=== PATIENT | female | born 1995 | race Caucasian/White ===

== ENCOUNTER 2022-08-30 09:36 | Outpatient (RCR) | payer MEDICAID, SELFPAY ==
--- NOTE | 2022-08-30 11:05 | BH.SGPN.GN ---
Behaviors/Verbalizations/Mental Status: []Pt alert and oriented, casually dressed and groomed. Eye contact poor. Motor activity appropriate. Speech within normal limits. Affect constricted, mood anxious. Thoughts linear, logical, no signs of hallucinations or delusions. Client Response/Progress/Benefit: []Pt appeared highly anxious as pt had poor eye contact and declined to share. Pt did engage with peers during the activity.? Pt observed peers in activity. Pt given handout on fair fighting rules but pt declined to identify a coping skill to try. ?Appeared to benefit from gaining strategies to help pt better manage conflict. First day of IOP tx. Will continue IOP tx to prevent decompensation, gain healthy coping skills, and improve daily functioning. Narrative Note: []
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
--- NOTE | 2022-08-30 12:50 | BH.DR.ITP ---
Initial Treatment Plan Patient Information Visit Information: ADMISSION DATE: EXPECTED LOS: 4-6 weeks Problems/Symptoms Problem #1:: Mood instability Symptom:: Sadness, irritability, hopelessness, worthlessness, isolation, decreased sleep, low energy, guilt, thoughts of self-harm Problem #2:: Anxiety Symptom:: Worry, rumination, panic attacks, worries about , flashbacks, reexperiencing, avoidance, exaggerated startle response
--- NOTE | 2022-08-30 14:38 | BH.COMM_ITS ---
Communication Note - Communication with Client Communication Note: Met with pt to complete initial paperwork. No significant changes since pre-admission screening. Completed [place] Suicide Screening. Moderate risk. No active SI. Consulted with Dr. Cabrera with plan to admit to [facility] level of care with dx of Bipolar, NOS (F31.9).
--- NOTE | 2022-08-31 09:10 | BH.SGPN.GN ---
Behaviors/Verbalizations/Mental Status: [] Eye contact is poor. Motor activity is appropriate. Appearance is casual. Speech is Appropriate. Mood is depressed. Affect is flat. Thoughts are linear and logical. No evidence of psychosis. Reviewed daily check in sheet and no reports of suicidal ideations or intent. Client Response/Progress/Benefit: [] Pt did not participate in group discussion. Attentive at times however mainly looking down at the ground. No attempt to engage. Daily symptom tracker notes 3/5 for anxiety and depression and 1/5 for self-harm urges. When asked if she would like to share or answer a fun ice-breaker questions she declined. No benefited noted from group today. This is her second day in IOP however no engagement in any group sessions yet. Will continue in IOP to prevent decompensation, provide support, and increase healthy coping skills. Narrative Note: []
--- NOTE | 2022-08-31 10:10 | BH.SGPN.GN ---
Behaviors/Verbalizations/Mental Status: []Eye contact is fair. Motor activity is appropriate. Appearance is casual. Speech is Appropriate. Mood is depressed and anxious. Affect is constricted. Thoughts are linear and logical. No evidence of psychosis. Client Response/Progress/Benefit: []Pt second day in IOP tx, continues to report severe anxiety impeding ability to participate in discussions. Attentive during psychoeducation AEB note-taking and nodding throughout. Attentive during interactive discussion amongst peers on the definition and examples of crisis, sharing that ?you have to be ready to make changes in order to take steps towards crisis prevention?. Listened as peers identified unhealthy responses to crisis which included; substance use, avoidance, isolation, sleeping, risky behaviors, denial, etc. Benefited from increased awareness of crisis and personal warning signs. Will continue in IOP to prevent decompensation, stabilize mood, and increase healthy coping. Narrative Note: []
--- NOTE | 2022-08-31 11:10 | BH.SGPN.GN ---
Behaviors/Verbalizations/Mental Status: []Client alert and oriented, casually dressed and groomed. Eye contact poor. Motor activity appropriate. Speech within normal limits. Affect flat. Mood anxious. Thoughts linear, logical, no signs of hallucinations or delusions. Client Response/Progress/Benefit: []Client passive participant in group AEB providing limit contributions, however did appear to listen attentively to others. Client identified her warning signs on worksheet for crisis and gained further awareness of earliest warning signs. Client created a crisis action plan to help client better manage warning signs for crisis. Client identified she can make jokes to make others laugh to overcome warning sign of not wanting to speak. Client appeared to benefit from creating a crisis action plan and increasing self-awareness. Client expresses severe anxiety in group environment. Client to continue IOP tx to improve daily functioning, increase healthy coping, and prevent decompensation.
--- NOTE | 2022-08-31 11:16 | BH.COMM_ITS ---
Communication Note - Communication with Client Communication Note: Therapist intended to meet with pt for an individual s ession, but pt was too anxious. Pt avoiding eye contact, fidgeting with her shoelaces, and repeating I don't know when asked questions. Pt shared she is unsure if she will stay in IOP due to her anxiety in the group setting. Pt reports wanting to give it another day or two before she makes a decision. Pt encouraged to stay, but if pt decides to voluntarily discharge, pt will be offered counseling resources.
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
--- NOTE | 2022-08-31 12:48 | BH.MTP ---
Master Treatment Plan - Patient Information Program Physician:: Dr. Chappell Primary Therapist:: Nelly SEGURA - Psychiatric Diagnoses Psychiatric Diagnoses:: Bipolar, NOS (F31.9); Panic disorder; PTSD; OCD; Rule out borderline personality disorder Diagnosis Code(s):: F 31.9 - Estimated LOS Estimated LOS (in weeks):: 6 Problem/Goal #1 - Problem/Goal #1 Stated Goal:: Pt will increase mood stability by reducing hopelessness, worthlessness, irritability, and isolation. Description of Barriers: Pt has severe anxiety which leads to avoidance, so there is a concern that pt will struggle with the group environment. Pt has limited supports and pt struggles to maintain employment. Pt has a history of self-injurious behaviors. Functional Impact: Pt is a 27 year-old female with a history of MDD, CARLOS, OCD, and PTSD. Pt was self-referred due to decompensation over the past several months. At admission, pt endorsed increased sleep, erratic appetite, low energy, low motivation, hopelessness, worthlessness, isolative behaviors, increased irritability, and anhedonia. Pt reports that she just wants to lay in bed all day. Pt shared she has passive SI, but is terrified of dying so pt would not act on these thoughts. Pt also endorsed severe anxiety with daily panic attacks and ruminations. Pt stated it is hard for her to maintain employment due to her anxiety and panic attacks. Pt's symptoms are currently impacting her daily and occupational functioning. Goal Relevant Strengths/Supports: Pt is motivated for tx per her report, has support from her roommate, and has outpatient psychiatry. - Objectives Objective #1 Stated Objective: Pt will learn and utilize 2-3 healthy coping strategies to better manage depressive symptoms and reduce thoughts of as shown by a decrease of DMS-5 symptoms for depression. Interventions: Through group and individual sessions, therapist will help pt identify triggers and warning signs of depression and guilt including emotional, physical, and behavioral changes. Therapist will teach pt various coping skills to manage symptoms and give pt tangible resources to use to regulate emotions. Therapist will use cognitive restructuring techniques and help pt gain awareness of negative thoughts that reinforce guilt and depression. Therapist will provide psychoeducation on maintenance cycles and help pt learn ways to break unhealthy maintenance cycles. Therapist will help pt incorporate behavioral activation and assist pt in setting SMART goals. Discharge Criteria: Pt will have met this goal when can report learning and using at least 2 coping skills to manage depressive symptoms and reduce isolation. Additionally, pt will have met this goal when pt's DSM-5 scores for depression decrease. Target Date: 10/11/22 Review Date: 09/20/22 Status: open Objective #2 Stated Objective: Pt will reduce anhedonia and improve mood through setting and accomplishing 2-3 behavioral activation goals a week. Interventions: Through group and individual sessions, pt will learn how to set small SMART goals to promote mood stability. Therapist will provide education on maintenance cycles for depression and help pt learn how to break unhealthy maintenance cycles Discharge Criteria: Pt will have accomplished this goal when can report accomplishing at least two behavioral activation goal a week. Target Date: 10/11/22 Review Date: 09/20/22 Status: open Problem/Goal #2 - Problem/Goal #2 Stated Goal:: Will reduce avoidance and anxiety through increasing emotional regulation and distress tolerance skills Description of Barriers: Pt has severe anxiety which leads to avoidance, so there is a concern that pt will struggle with the group environment. Pt has limited supports and pt struggles to maintain employment. Pt has a history of self-injurious behaviors. Functional Impact: Pt is a 27 year-old female with a history of MDD, CARLOS, OCD, and PTSD. Pt was self-referred due to decompensation over the past several months. At admission, pt endorsed increased sleep, erratic appetite, low energy, low motivation, hopelessness, worthlessness, isolative behaviors, increased irritability, and anhedonia. Pt reports that she just wants to lay in bed all day. Pt shared she has passive SI, but is terrified of dying so pt would not act on these thoughts. Pt also endorsed severe anxiety with daily panic attacks and ruminations. Pt stated it is hard for her to maintain employment due to her anxiety and panic attacks. Pt's symptoms are currently impacting her daily and occupational functioning. Goal Relevant Strengths/Supports: Pt is motivated for tx per her report, has support from her roommate, and has outpatient psychiatry. - Objectives Objective #1 Stated Objective: Pt will increase ability to manage stressors and anxiety by gaining 2-3 distress tolerance skills. Interventions: Through group and individual therapy, pt will learn various coping skills to help manage stress and anxiety. Therapist will utilize DBT distress tolerance skills to increase awareness and give pt tools to more effectively manage anxiety. Therapist will provide psychoeducation on emotional regulation and help pt identify unhealthy coping skills she wants to change. Discharge Criteria: Pt will have accomplished this goal when can report improved ability to manage stressors and identify at least 2 distress tolerance skills Target Date: 10/11/22 Review Date: 09/20/22 Status: open Objective #2 Stated Objective: Pt will identify 2-3 anxiety triggers and 2 coping skills to use when feeling anxious to manage anxiety as shown by reducing DSM-5 scores for anxiety Interventions: Therapist will provide education on anxiety, avoidance behaviors, and maintenance cycles. Therapist will help pt explore personal symptoms and warning signs of anxiety. Therapist will teach pt coping skills to improve emotional regulation, mindfulness, and distress tolerance to help pt cope with anxiety in the moment. Discharge Criteria: Pt will have accomplished this goal when he can identify at least 2 triggers and report using 2 coping skills to manage anxiety. Additionally, pt will have accomplished this goal AEB reduction of DSM-5 scores for anxiety. Target Date: 10/11/22 Review Date: 09/20/22 Status: open
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
--- NOTE | 2022-09-06 10:12 | BH.SGPN.GN ---
Behaviors/Verbalizations/Mental Status: []Eye contact is fair to good. Motor activity is appropriate. Appearance is casual. Speech is Appropriate, soft and difficult to hear at times. Mood is anxious. Affect is constricted. Thoughts are linear and logical. No evidence of psychosis. Client Response/Progress/Benefit: []Pt did well to be an engaged participant in group discussions which is progress compared with previous groups. Attentive during psychoeducation on SMART goals (Specific, Measurable, Achievable, Realistic, and Time-bound) and engaged in group experiential activity. Participated in an interactive discussion with peers in which they worked together to define what a goal is and the benefits of having goals. Group identified benefits as; provides motivation, increased confidence, needed for growth, gives a sense of accomplishment, and help promote healthy change behaviors. Participated in interactive discussion in which group identified barriers to setting goals and following through with goals. Barriers identified included; lack of motivation, procrastination, criticism from self/others, unrealistic expectations, outside stressors, and not knowing where to start. Noted connecting with barrier of procrastination and not prioritizing own needs. Benefited from increased awareness of benefits and strategies for goal-setting. Will continue in IOP to prevent decompensation, improve mood stability, and improve ability to use healthy distress tolerance skills. Narrative Note: []
--- NOTE | 2022-09-06 11:12 | BH.SGPN.GN ---
Behaviors/Verbalizations/Mental Status: []Eye contact is fair to good. Alert and oriented. Motor activity is appropriate. Appearance is casual. grooming is appropriate. Speech is Appropriate. Mood is anxious and dysthymic. Affect is congruent. Thoughts are linear and logical. No evidence of psychosis or hallucinations. Client Response/Progress/Benefit: []Client was engaged during discussion and willing to complete the worksheet challenging them to develop a personal SMART goal. Client chose the goal of not engaging in unhealthy coping/self-harming when tempted to each day for a week. Client stated this will benefit them by improving approach to healthy coping, prevent decompensation, and improve sense of hope. Client identified barriers which included: negative and intrusive thinking, not wanting to lose sense of control, and fear. Client receptive to identifying solutions for these barriers and willing to begin working on this goal. Benefited from this group by developing a short-term SMART goal related to mental health. Will continue IOP tx to improve mental health sx management, increased healthy coping, and prevent decompensation. Narrative Note: []
--- NOTE | 2022-09-07 09:05 | BH.SGPN.GN ---
Behaviors/Verbalizations/Mental Status: [] Eye contact is good. Motor activity is appropriate. Appearance is casual. Speech is Appropriate. Mood is anxious. Affect is congruent. Thoughts are linear and logical. No evidence of psychosis. Reviewed daily check in sheet and no reports of suicidal ideations. Client Response/Progress/Benefit: [] Pt participated at times. Attentive. Mental health win was ?I participated in group yesterday?. Daily symptom tracker notes 4/5 for anxiety and 3/5 for depression and irritability. Shared that she developed a goal yesterday during group and has been ?sticking with it?. She has also been ?Staying away from unhealthy coping skills?. Emotion for today is ?feeling good?. Benefited from group support, encouragement, and feedback. Will continue in IOP to maintain safety, prevent decompensation, and decrease anxiety/panic. Narrative Note: []
--- NOTE | 2022-09-07 13:00 | BH.MDN ---
Multi-Disciplinary Note - Note 45-min Individual Time Started:: 10:30 Date: 09/07/22 Purpose of session/treatment goals addressed:: Pt left group early reporting a panic attack. Met with this therapist to process and manage anxiety. Eye Contact:: Fair Motor Activity:: Restless Appearance:: Casual Speech:: Rapid Mood:: Anxious Affect:: Congruent Thoughts:: Linear, Logical, No evidence of hallucinations/delusions noted Staff Interventions:: mindfulness skills, taught coping skills Client Response:: Pt reports panic attack due to being overstimulated in group (too many noises and stimuli). She is breathing heavy and reports SOB and increased heart rate. We began to utilize basic skills to help decreased anxiety and overwhelming thoughts. She reports that breathing exercises make things worse so we focused on mindfulness and grounding. Together we worked through 5 senses and she was able to calm. Reports being hypervigilant for no reason. When this occurs she begins to focus on physical sensations which leads to intrusive thoughts about her health and convinces herself she is having a medical emergency. Engaged in disucssion on health anxiety and intrusive thoughts. Open to discussion on worried mind, false comfort, and gibson mind and how these skills can help minimize impact of intrusive health thoughts. Reports that anxiety is worse due in large part to psychosocial stressors specifically work. She processed some of her frustrations with her employer. Risks/Concerns:: no risks or concerns noted. Progress Toward Goals/Plan:: Pt was able to calm and manage anxiety attacks within 5-10 minutes and responded well to mindfulness skills. Towards the end of the session she was smiling and reported feeling much better. She criticizes herself for her anxiety and catastrophizing thoughts I know what I'm doing She felt calm enough to return to group however reported that when she was in panic she texted her friend to pick her up and her friend was currently in the parking lot. We agreed that she could leave early today. Will continue in IOP to prevent decompensation, stabilize anxiety, and increase healthy coping skills. Time Stopped:: 11:15
== END 2022-09-08 23:59 ==
LOC: BHIOP 09:36
PROVIDERS: Referring Provider Psychiatry & Neurology Psychiatry; Visit Provider Psychiatry & Neurology Psychiatry
DX: F31.9 Bipolar disorder, unspecified (principal); F43.10 Post-traumatic stress disorder, unspecified; F41.0 Panic disorder [episodic paroxysmal anxiety]; F42.9 Obsessive-compulsive disorder, unspecified
CPT/HCPCS: 90792; H2012; H2020; S9480; 90832

== ENCOUNTER 2022-09-09 08:22 | Outpatient (RCR) | payer MEDICAID, SELFPAY ==
--- NOTE | 2022-09-09 09:20 | BH.COMM ---
Communication Note - Communication with Client Communication Note: Pt canceled their scheduled group and individual sessions today due to illness. Pt did not get to meet with this therapist this week, but met with another therapist on Tuesday. PT plans to come Tuesday09/13/22.
--- NOTE | 2022-09-14 09:10 | BH.SGPN.GN ---
Behaviors/Verbalizations/Mental Status: [] Eye contact is good. Motor activity is appropriate. Appearance is casual. Speech is Appropriate. Mood is anxious. Affect is congruent. Thoughts are linear and logical. No evidence of psychosis. Reviewed daily check in sheet and denies any SI. Client Response/Progress/Benefit: [] Pt participated when prompted. Attentive. Emotion for today was ?Stressed and anxious?. Shared with the group that she utilized assertive communication over the weekend ?which I learned from group?. She verbalized to her retail account manager the impact that the retail account manager?s words had on her. Professor Of Philosophy responded well and apologized. Able to see the benefits to being assertive rather than avoidant as the event would have led to anger and resentment towards her retail account manager. She also shared with the group her struggles with health anxiety and discussed some examples from this weekend. Benefited from group support, encouragement, and feedback. Will continue in IOP to prevent decompensation, increase healthy coping, and to decrease intrusive thoughts. Narrative Note: []
--- NOTE | 2022-09-14 10:05 | BH.SGPN.GN ---
Behaviors/Verbalizations/Mental Status: []Pt alert and oriented, casually dressed and groomed. Eye contact good. Motor activity appropriate. Speech within normal limits. Affect congruent, mood depressed, anxious. Thoughts linear, logical, no signs of hallucinations or delusions. Client Response/Progress/Benefit: []Pt responded well to session AEB contributing some to discussion, taking notes, and listening attentively to others. Group discussed the benefits of managed anger and anger as a secondary emotion. Pt shared perspective on negatives from acting out in anger as increased anxiety and negative self-talk.? Pt completed worksheet on anger triggers and personal warning signs of anger. Pt identified their biggest triggers as ?fear or feeling unsafe?, when something isn?t fair, and invalidation. Appeared to benefit from increased knowledge of the anger cycle as well as personal triggers. Will continue IOP tx to promote mood stability, further improve anxiety management, and reinforce use of healthy coping skills. Narrative Note: []
--- NOTE | 2022-09-14 11:10 | BH.SGPN.GN ---
Behaviors/Verbalizations/Mental Status: []Client alert and oriented, casually dressed and groomed. Eye contact fair. Motor activity appropriate. Speech within normal limits. Affect constricted, mood anxious. Thoughts linear, logical, no signs of hallucinations or delusions. Client Response/Progress/Benefit: []Pt was engaged throughout AEB contributing to group discussion and self-reflection. Group finished processing cues to anger worksheet. Pt contributed as group brainstormed healthy coping skills for better managing anger which included: music, walking/exercise, changing the environment, communicating with supports, and journaling. Pt reported she would be willing to start using thought log tool to increase awareness of her triggers, responses, and frequency of experiencing anger. Pt appeared to benefit from identifying different techniques to manage anger as well as gaining awareness of potential consequences of unmanaged anger. Will continue IOP tx to improve daily functioning, increase healthy coping and prevent decompensation.
--- NOTE | 2022-09-14 15:16 | BH.MDN_ITS ---
Multi-Disciplinary Note - Note 30-min Individual Time Started:: 12:10 Date: 09/14/22 Purpose of session/treatment goals addressed:: To work on goal #2 of pt's tx plan. Another goal was to discuss triggers for pt's health anxiety. Eye Contact:: Good Motor Activity:: Appropriate Appearance:: Casual Speech:: Appropriate Mood:: Euthymic, Anxious Affect:: Congruent Thoughts:: Linear, Logical, No evidence of hallucinations/delusions noted Staff Interventions:: psychoeducation on: - maintenance cycles, health anxiety, intrusive thoughts, CBT techniques, strengths perspective, goal setting, taught coping skills Client Response:: Pt responded well to session, open to meeting with therapist. Pt was more energized today in session and was alert. Pt appeared less anxious around therapist compared to initial session. Pt receptive to discussing her anxiety and health anxiety as well learning about the anxiety maintenance cycle. Pt able to identify personal maintenance cycle for anxiety which included anxious thoughts about being judged or things not going well, behaviors such as avoidance, and then increased anxiety in the future. Pt also explored her health anxiety maintenance cycle which included catastrophizing thoughts due to a physical sensation, reassurance seeking via googling or going to the hospital, and then immediate relief followed by more anxiety. Discussed how to break this cycle and pt learned about DDD (delay, distract, decide) to help pt prolong her urge to engage in safety behaviors. Pt's goal is to practice DDD before googling a symptom. Pt also given homework to read about intrusive thinking. Pt receptive to therapist's encouragement to increase consistent attendance as this will reduce anxiety over time and hopefully improve pt's IOP experience. Risks/Concerns:: Pt denies any suicidal ideations, plan, or intent as of 09/14/22. Pt is future oriented. Progress Toward Goals/Plan:: Pt is working towards her tx goals, but pt continues to struggle with avoidance due to anxiety. Pt's engagement in group this week was improved, but pt still averages one cancelation a week. Pt was receptive to learning about health anxiety today including triggers and intrusive thoughts. Pt reports symptoms of hype fixation of somatic symptoms, reassurance seeking from health care providers and friends, and constant worry about her health. Pt receptive to reading about intrusive thinking and pt set a goal to practice reduction of safety behaviors. Pt will continue IOP tx to prevent decompensation, improve daily functioning, and gain distress tolerance s kills. Time Stopped:: 12:45
--- NOTE | 2022-09-16 09:01 | BH.SGPN.GN ---
Behaviors/Verbalizations/Mental Status: []Eye contact good, casually dressed, motor activity appropriate, speech normal rate and tone, mood anxious and depressed, constricted affect, thoughts linear and intact, no evidence of delusions or hallucinations. Reviewed pt's symptom tracker, suicidal ideation within pt baseline, denies any current plan, or intent as of this date 09/16/22. Client Response/Progress/Benefit: []Pt responded well to session, attentive and willing to share with the group. Pt reports feeling ?stressed this morning. Shared this is due to continued struggles with anxiety management. Discussed several skills she has been trying to implement; however is not doing so consistently and therefore has not been able to report consistent effectiveness of skills. Receptive of suggestions provided by fellow group participants and supportive feedback. Reports continuing to try to be open minded about her ability to make progress in IOP tx but is struggling with finding anything to be effective. Appearing to benefit from supportive feedback and reflecting on skills to continue to improve anxiety management. Pt to continue IOP tx to further improve healthy coping repertoire, improve mood, and prevent decompensation. Narrative Note: []
--- NOTE | 2022-09-16 10:01 | BH.SGPN.GN ---
Behaviors/Verbalizations/Mental Status: [] Client alert and oriented, casually dressed and groomed. Eye contact good. Motor activity appropriate. Speech within normal limits. Affect constricted, mood euthymic and anxious. Thoughts linear, logical, no signs of hallucinations or delusions. Client Response/Progress/Benefit: [] Client responded well to session AEB taking notes throughout and listening attentively to others. Client was attentive throughout group activity identifying famous individuals and how they overcame failure to be successful. Client helped group identify how fear of failure can impact mental health and relationships. Client personally identified that fear of failure has resulted in her being stagnant and not growing. Client participated in experiential activity, working with group members to problem solve. Appeared to benefit from increased knowledge of fear of failure. Will continue IOP tx to improve self worth, reduce distorted thinking patterns, and increase overall functioning. Narrative Note: []
--- NOTE | 2022-09-16 11:01 | BH.SGPN.GN ---
Behaviors/Verbalizations/Mental Status: [] Client alert and oriented, casually dressed and groomed. Eye contact good. Motor activity appropriate. Speech within normal limits. Affect constricted, mood euthymic and anxious. Thoughts linear, logical, no signs of hallucinations or delusions. Client Response/Progress/Benefit: [] Client responded well to session, engaged in the experiential activity and attentive throughout group processing. Client completed fear of failure worksheet and was able to identify thoughts and behaviors that reinforce personal fear of failure including trama, self sabotage, and toxic people. Client participated in small group discussion regarding strategies to overcome fear of failure. Identified reaching out to support, therapy, and opposite action. Appeared to benefit from increased knowledge of strategies to combat fear of failure and gaining self-awareness. Client will continue IOP tx to increase self worth and to increase overall functioning. Narrative Note: []
--- NOTE | 2022-09-21 09:00 | BH.SGPN.GN ---
Behaviors/Verbalizations/Mental Status: []Eye contact is good. Motor activity is appropriate. Appearance is casual. Speech is Appropriate. Mood is anxious. Affect is constricted. Thoughts are linear and logical. No evidence of psychosis. Reviewed daily check in sheet and pt's scores were within pt's baseline. Client Response/Progress/Benefit: []Pt responded somewhat well to session, quiet, but participating when prompted. Pt reports feeling stressed this morning ans was sitting away from the group. Pt chose not to elaborate on her stressors, she shared that she is stressed about everything. Pt did give herself credit for making it to IOP today when pt wanted to isolate and cancel. Pt shared her roommate pushed her to come today which was helpful. Pt's second win was that she decorated the [employer] tree with her roommate which brought pt saravanan. Pt appeared to benefit from attending group today instead of isolating. Pt will continue IOP tx to prevent further decompensation, reduce avoidance, and improve daily functioning. Narrative Note: []
--- NOTE | 2022-09-21 10:10 | BH.SGPN.GN ---
Behaviors/Verbalizations/Mental Status: [] Eye contact is poor. Motor activity is appropriate. Appearance is casual. Speech is Appropriate. Mood is depressed. Affect is flat. Thoughts are linear and logical. No evidence of psychosis. Client Response/Progress/Benefit: [] Pt had limited participation in group discussions. Active participant in experiential activity. Attentive during psychoeducation. Attentive as peers shared types of social supports which included; family, friends, PCP, mental health providers, support groups, pets, ourselves, community classes, etc. Attentive as group identified mental health benefits of social support which patient and group identified as; it can help with emotional release, help one to feel heard, validation, distraction, they can encourage us, provide motivation, provide accountability, and boost our mood. Attentive as peers worked together to identify obstacles to utilizing support which included; feeling like one doesn't deserve support, past negative experiences, cognitive distortions, and avoidance/mood. Benefited from increased awareness of mental health benefits of social support and obstacles that prevent one from utilizing support. Will continue in IOP to maintain safety, increase healthy coping skills, and prevent decompensation. Narrative Note: []
--- NOTE | 2022-09-23 10:10 | BH.SGPN.GN ---
Behaviors/Verbalizations/Mental Status: [] Eye contact is good. Motor activity is appropriate. Appearance is casual. Speech is Appropriate. Mood is euthymic. Affect is full. Thoughts are linear and logical. No evidence of hallucinations or delusions. Client Response/Progress/Benefit: [] Pt was an active participant in group discussion and activity. Attentive during psychoeducation. Along with peers was able to identify barriers to taking action on her mental health which included: fear of failure, the unknown, change, one's environment, past negative experiences, being passive, and fear of vulnerability. Identified several symptoms and stressors that she feels are holding her back from progress such as anxiety, past trauma, anger, self-harm, and OCD. Benefited from increased self-awareness of obstacles. Will continue in IOP to decrease anxiety, increase consistent use of healthy coping skills, and prevent decompensation.
--- NOTE | 2022-09-23 11:15 | BH.SGPN.GN ---
Behaviors/Verbalizations/Mental Status: []Client alert and oriented, casually dressed and groomed. Eye contact fair. Motor activity appropriate. Speech within normal limits. Affect congruent, mood anxious. Thoughts linear, logical, no signs of hallucinations or delusions. Client Response/Progress/Benefit: []Client responded well to session, taking notes and participating in worksheet discussion. Client connected with the zones of action/change and reported that making sustainable change comes from stepping out of one?s comfort zone into the learning zone. Client set a goal to gain control over her what if/negative thoughts. Client reported her goal is to challenge 3-4 negative thoughts a day. Client identified telling a friend when has negative thought and challenge the negative thought out loud as supports needed to help her accomplish goal. Appeared to benefit from identifying a small goal to benefit mental health. Will continue IOP tx to increase healthy coping, decrease anxiety, and prevent decompensation.
--- NOTE | 2022-09-23 13:34 | BH.MTP_ITS ---
Treatment Plan Review Date of Admission:: 08/30/22 Date of Treatment Plan Review:: 09/23/22 Admitting Diagnoses:: Bipolar, NOS (F31.9); Panic disorder; PTSD; OCD; Rule out borderline personality disorder Current Diagnoses:: Bipolar, NOS (F31.9); Panic disorder; PTSD; OCD; Rule out borderline personality disorder Patient's Response to Treatment:: Pt is responding somewhat well to IOP tx. Pt's attendance has improved from her first week, but pt still struggles with getting to IOP consistently. Pt averages one cancel a week. Pt's engagement during group sessions is variable, depending on pt's mood that day. Pt does report practicing coping skills outside of IOP tx such as assertive communication. Status of Current Problems and Symptoms: Pt's symptoms have not resolved since admission, in fact, pt's DSM-5 scores have increased since admission. Pt continues to report panic attacks, health anxiety, avoidance, and poor functioning. Pt's avoidance and anxiety impacts pt's IOP attendance. Pt also is not taking any additional medication for her anxiety and depression besides her PRN medication which could be preventing pt from getting better in the long- term. Problem #1 Problem Name:: Hopelessness, worthlessness, irritability, and isolation Status of Goals:: Objective 1- not complete. Pt has learned different coping skills to improve depression, but pt continues to struggle with breaking the depressive cycle and pt's DSM-5 scores are still severe. Pt does report retaining information from group. Objective 2- in process, pt is learning about maintenance cycles and goal setting. Pt can benefit from continuing to work on this goal to increase motivation. Team Recommendations:: Pt is encouraged to continue working on these tx goals as pt's symptoms are still severe and impacting her functioning. Pt has been encouraged by therapist to increase attendance to reduce isolation and practice distress tolerance skills. Problem #2 Problem Name:: Avoidance, anxiety, and poor emotional regulation Status of Goals:: Objective 1- not complete, but in progress. Pt is learning about safety behaviors and how these reinforce anxiety. Pt is open to setting goals and increasing her attendance. Objective 2- not complete, but in progress. P's avoidance is still impacting her functioning, but pt is more open to learning about a fear ladder and sitting with the uncomfortable. Pt's scores for anxiety have not decreased since admission. Team Recommendations:: Pt is encouraged to continue working on these tx goals as pt's symptoms are still severe and impacting her functioning. Pt has been encouraged by therapist to increase attendance to combat anxiety and practice distress tolerance skills.
--- NOTE | 2022-09-23 13:34 | BH.MDN ---
Multi-Disciplinary Note - Note 45-min Individual Time Started:: 12:05 Date: 09/23/22 Purpose of session/treatment goals addressed:: To work on goal #2 of pt's treatment plan. Another goal was to highlight pt's recent use of skills to manage a panic attack. Eye Contact:: Good Motor Activity:: Appropriate Appearance:: Casual Speech:: Appropriate, Rambling Mood:: Euthymic Affect:: Congruent Thoughts:: Linear, Logical, No evidence of hallucinations/delusions noted Staff Interventions:: thought challenging, psychoeducation on: - exposure therapy and medication, CBT techniques, mindfulness skills - reviewed grounding skills to help with panic, rapport building, strengths perspective, goal setting - gave pt an example fear ladder to review and encouraged pt to identify goals for her own ladder Client Response:: Pt responded well to session, open to meeting with therapist. Pt shared feeling excited and proud of herself because pt was able to work through a really bad panic attack without going to the ER. Pt shared she has been able to work through smaller panic attacks before, but this is the first time she has worked through a major one. Pt used grounding skills and made a new support connection with her neighbor. Pt stated in the past she would have immediately went to the ER, but she was receptive to the help her neighbor gave her and pt shared this reminded her she can get through anxiety. Pt's health anxiety is triggered when pt has a panic attack because pt is terrified of her heartbeat. Pt stated she also made progress with reducing her googling of symptoms. Pt encouraged to keep working on prolonging her response to engage in safety behaviors. Pt connected with the intrusive thoughts chapter and discussed some helpful tips for managing intrusive thoughts. These included reminding self that not all thoughts need our attention and that just because pt thinks it does not make it more likely to happen. Pt feels ready to begin working on reducing avoidance with her general anxiety and was given a fear ladder to review. Pt and therapist also discussed pt weighing the pros and cons of taking antidepressant medication to help pt further reduce racing thoughts and daily anxiety. Pt is considering this and will think more about it over the weekend. Risks/Concerns:: Pt denies any suicidal ideations, plan, or intent as of 09/23/22. Pt admits to urges to self-harm and restrict her eating, but pt does not present as an immediate threat to self. Progress Toward Goals/Plan:: Pt is making progress towards her tx goals in some areas, but pt's is still struggling to reduce avoidance. Pt consistently cancels one session a week, but pt acknowledges this as a safety behavior. Earlier this week pt completed the DSM-5 and her scores increased from admission, but today pt's mood was very positive and she reported being proud of herself for coping. Pt is also more receptive to taking an antidepressant medication which is progress. Pt continues to endorse a depressed mood, low energy, distorted thinking patterns, avoidance, panic attacks, poor sleep, and health anxiety symptoms. Pt is becoming more aware of the behaviors and thoughts that reinforce anxious and depressive cycles which is progress. Pt will continue IOP tx to prevent decompensation, increase distress tolerance skills, and improve daily functioning. Time Stopped:: 12:45
--- NOTE | 2022-10-01 10:05 | BH.COMM ---
Communication Note - Communication with Client Communication Note: Pt missed all week due to illness. Pt scheduled for next week.
--- NOTE | 2022-10-07 11:15 | BH.SGPN.GN ---
Behaviors/Verbalizations/Mental Status: []Pt alert and oriented, casual appearance. Eye contact fair. Motor activity appropriate. Speech within normal limits. Affect constricted, mood anxious. Thoughts linear, logical, no signs of hallucinations or delusions. Client Response/Progress/Benefit: []Pt engaged in session AEB pt listening attentively to peers, taking notes, and providing input. Attentive during psychoeducation on 4 zones of regulation. Pt able to identify feelings and behaviors pt exhibits for each zone.? Pt identified coping skills one can use to support self in each zone. Pt stated she is mostly in the yellow zone (anxious). Pt identified coping skills she is willing to try to include: decreasing reassurance behavior, self-care, and increase socialization. Benefited from increased education on zones of regulation or stages of alertness for emotions and healthy coping skills to use for each zone. Pt will continue IOP to decrease anxiety, increase consistent application of skills, and prevent decompensation. Narrative Note: []
--- NOTE | 2022-10-07 11:43 | BH.MDN_ITS ---
Multi-Disciplinary Note - Note 60-min Individual Time Started:: 10:20 Date: 10/07/22 Purpose of session/treatment goals addressed:: To work on pt's distress tolerance and emotional regulation skills. To process current stressors and reframe negative thinking patterns. Eye Contact:: Fair Motor Activity:: Restless Appearance:: Casual Speech:: Rambling, Rapid Mood:: Anxious Affect:: Congruent - tearful Thoughts:: Racing, Circular, No evidence of hallucinations/delusions noted Staff Interventions:: thought challenging, CBT techniques, mindfulness skills, strengths perspective, goal setting - Encouraged pt to talk about her feelings and get clarification from roommate. Client Response:: Pt responded well to session, open to meeting with therapist. Pt was tearful throughout session and shared feeling like her life is falling apart. Pt stated she got a bad review at work, even though pt feels like she does a good job. Pt also feels anxious around her roommate due to pt overthinking everything. Pt vented for a bit and then was able to decompress and calm down. Pt receptive to therapist speaking calmly and using gentle thought challenging. Pt responded well to thought challenging and could see a different perspective with her roommate. Pt gained insight that when she is overwhelmed she has an all or nothing and overgeneralizing perspective. Pt connects how this leads to self-fulfilling prophecies and pt isolating herself from her roommate. Pt willing to have a discussion with her roommate to address pt's needs and explore ways to better their relationship. Pt also willing to begin working on her fear ladder which was discussed a few sessions ago. After pt used skills to deescalate, pt was able to give herself credit for better managing her panic attacks and making progress in reducing googling. Risks/Concerns:: Pt denies any active SI, plan, or intent. Pt reports increased feelings of anxiety and feeling overwhelmed. Pt is not a threat to herself or others. Progress Toward Goals/Plan:: Pt's progress appears to be variable based on pt's mood and stressors of the week. Pt presents to [facility] tx today with increased anxiety, depression, and mood instability due to recent worries about her relationship with her roommate. Pt did show progress in her ability to bounce back and manage her emotions during session. Pt is considering going on medication for her anxiety as pt sees that her progress is plateauing. Pt continues to endorse panic attacks, crying spells, ruminations, avoidance, obsessive thoughts, and checking behaviors associated with her health. Pt continues to frequent the ER and check her oxygenator regularly. Pt will continue IOP tx to increase distress tolerance skills, improve daily functioning, and reduce avoidance. Time Stopped:: 11:15
--- NOTE | 2022-10-08 10:53 | BH.COMM ---
Communication Note - Communication with Client Communication Note: Pt only showed one day this week. Called off for various reasons. Inconsistent attendance. Missed several days which has resulted in not following up with program psychiatrist as well as lack of progress.
== END 2022-10-09 23:59 ==
LOC: BHIOP 08:22
PROVIDERS: Referring Provider Psychiatry & Neurology Psychiatry; Visit Provider Psychiatry & Neurology Psychiatry
DX: F31.9 Bipolar disorder, unspecified (principal); F41.0 Panic disorder [episodic paroxysmal anxiety]; F43.10 Post-traumatic stress disorder, unspecified; F42.9 Obsessive-compulsive disorder, unspecified
CPT/HCPCS: H2012; H2020; S9480; 90832; 90834; 90837

== ENCOUNTER 2022-10-05 10:10 | Emergency (ER) | payer MEDICAID, SELFPAY ==
[2022-10-05 10:11] VITALS: BP 112/68; PULSE 96; RESP 18; TEMP 36.4; O2SAT 97; BMI 26.7
--- NOTE | 2022-10-05 10:51 | EDS_ITS ---
HPI History of Present Illness Chief Complaint: Chest Other Informant: patient Onset/Context/Timing Onset: Weeks (1-2) Activity at onset: gradual and onset Timing: Intermittent and Lasts (varies) Quality: Positive for - (like a sore muscle) Location: Substernal Current Severity: Mild Maximum Severity: Moderate Worsened By: - (walking up steps. nonpleuritic.) Relieved By: - (sometimes w/ ibuprofen, other times not) Narrative Narrative: Patient states she presents with multiple symptoms. Chest discomfort has been off and on for a couple weeks, she states it feels like a pulled muscle but it last for hours or days, and she has no reason to have a pulled muscle in her chest. Yesterday she had abdominal cramping that felt like menstrual cramping, lower nonlateralizing, and orange oily diarrhea without blood, melena, urinary issues or symptoms, or vaginal discharge or symptoms. Her last normal menstrual cycle was about 2 weeks ago, she is not usually regular, so it is unusual that she is having menstrual cramping right now. She has never been and does not think she is right now. She states she has been taking a lot of ibuprofen in the last month or 2 because she discovered she had fibromyalgia. She denies food making her abdomen hurt, she has had no nausea, vomiting, fevers, cough, or dyspnea, nor other URI symptoms. Never had any abdominal surgeries. [facility] Medical History Bipolar disorder, unspecified Chronic fatigue syndrome CREST syndrome Fibromyalgia OCD (obsessive compulsive disorder) Panic disorder PTSD (post-traumatic stress disorder) Home Medications clonazepam 0.5 mg tablet (Klonopin) 0.5 mg PO TID PRN PRN Anxiety 09/01/22 [History Last Taken Unknown] Allergy/AdvReac Type Severity Reaction Status Date / Time Iodinated Contrast Media Allergy Other Verified 10/05/22 10:12 [iodine contrast] Surgical History no surgical history no surgical history Social History Smoking Status: Never smoker ROS ROS ED Constitutional Constitutional ED: Reports anorexia; Denies chills or fever(s) Eyes Eyes: Denies change in vision or diplopia ENT ENT ED: Denies rhinorrhea or sore throat Cardiovascular Cardiovascular: Reports chest pain; Denies palpitations Respiratory/Chest Respiratory/Chest: Denies cough or dyspnea Gastrointestinal Gastrointestinal: Reports as per HPI, abdominal pain and diarrhea; Denies hematochezia, melena, nausea or vomiting Genitourinary Genitourinary ED: Denies dysuria, hematuria or urinary frequency Musculoskeletal Musculoskeletal: Denies back pain or neck pain Integumentary Denies abscess or rash Neurologic Neurologic: Denies headache(s), paresthesias or weakness Psychiatric Psychiatric: Reports anxiety; Denies suicidal ideation or suicidal thoughts EXAM Physical Exam Const Vital Signs: 10/05/22 10:11 Temperature 97.5 F L Temperature Source Temporal Pulse Rate 96 Respiratory Rate 18 Blood Pressure 112/68 Blood Pressure Mean 82 Pulse Ox 97 Oxygen Delivery Method Room Air Positive well nourished and well developed General Appearance ED: well developed and NAD HEENT Reports moist mucous membranes normocephalic and atraumatic Eyes PERRL and EOMs intact bilaterally Neck full ROM and supple Resp normal respiratory effort and clear to auscultation bilaterally Cardio regular rate, regular rhythm and no murmurs Rate: Negative for tachycardic GI soft to palpation, non-tender and non-distended Auscultation: normoactive bowel sounds Palpation: soft Back/Spine no CVA tenderness General Back: other FROM Extremity normal to inspection General Extremety ED: Negative for edema, pulses abnormal or tenderness General Extremity: Negative for edema or pulses abnormal Neuro oriented x3, CN's II-XII intact bilaterally and no sensory deficits noted Sensorium / Orientation: awake and alert Motor Exam: strength 5/5 throughout Psych mental status grossly normal Skin no rashes or lesions noted and no wounds MDM MDM MDM Narrative Medical decision making narrative: PERC score 0, I do not think this patient is having an emergent medical condition, in order to rule these out in addition I ordered EKG, labs, chest x- ray, and gave her a GI cocktail and dicyclomine to see if that would help her feel better. However, the patient underwent the EKG, which shows low voltage and some mild flattening of T waves with no prior available, it is probably normal, however she refused to go undergo blood testing and urine testing to rule out other emergent medical conditions. She also refused the medications. Her chest x-ray is normal, 2 views that I interpreted. Radiology agrees. Given this, I really wanted to make sure she does not have an ectopic, I think that is less likely but since she really is refusing everything and still has chest discomfort on allowing her to go home AGAINST MEDICAL ADVICE which she is fine with doing and is apologetic to staff. Radiography Chest X-Ray - ED: 2 View, Read by ED Physician and No Acute Disease Diagnostic Testing: Clinical Impression(s) from Imaging Studies Chest X-Ray 10/05/22 11:04 IMPRESSION: Normal chest radiographs. Electronically Signed: Gurwinder Guevara MD at 11:12 EST , Rhythm Strip Rhythm Strip: Sinus Rhythm Rate: 70 Ectopy: None EKG Initial EKG: Attestation: I personally reviewed and interpreted this EKG as follows: Interpretation: Sinus Rhythm, No Acute Injury Pattern and Non-Specific ST Changes Discharge Plan Triage Chief Complaint: Chest Other Other Complaint: Chest Pain ED Provider: Ovidio Pleitez Dx/Rx/DC Orders Clinical Impression: Chest pain, unspecified, Lower abdominal pain, Acute diarrhea Instructions: Abdominal Pain, ED Chest Pain, Uncertain Cause Prescriptions: No Action clonazepam [Klonopin] 0.5 mg Tablet 0.5 mg PO TID PRN PRN (Reason: Anxiety) Primary Care Provider: Kayla Jones Referrals: Kayla Jones DO [Primary Care Provider] - As soon as possible Activity Restrictions/Additional Instructions: If you feel short of breath return to the emergency department immediately. If you change your mind about getting test, you may also return at any time. Disposition Disposition: Against Medical Advice Capacity Capacity Assessment Tool Can the patient make a choice & communicate that choice?: Yes Can the patient understand benefits, risks and alternatives?: Yes Can the patient make a logical, rational choice?: Yes Is the choice the patient makes consistent w/ their values?: Yes Is there an impending, emergent risk to the patient?: No Does the patient have an Advance Directive?: No Is there a Surrogate Available?: No
--- NOTE | 2022-10-05 11:04 | RAD_ITS ---
EXAM: XR CHEST, 2 VIEWS CLINICAL INDICATION: chest pain TECHNIQUE: Frontal and lateral views of the chest. This report was created using [employer] report generation technology. COMPARISON: None. FINDINGS: LUNGS AND PLEURAL SPACES: The lungs are clear. No pneumothorax. No effusion. HEART: Unremarkable. Cardiac silhouette not enlarged. MEDIASTINUM: Central airways and mediastinal contour are unremarkable. BONES/JOINTS: Unremarkable. SOFT TISSUES: Unremarkable. RAD/Chest PA and Lateral IMPRESSION: Normal chest radiographs. Electronically Signed: Gurwinder Guevara MD at 11:12 EST ,
--- NOTE | 2022-10-05 11:48 | ED.RN ---
PT ADAMANTLY REFUSES TO TAKE GI COCKTAIL OT BENTYL DESPITE BEING EDUCATED ON PURPOSE OF TAKING. PT ALSO DECLINES BLOOD DRAW, RIPPED OFF TOURNIQUET AND STATES I WON'T DO IT. PT COUNSELED ON NEED FOR TESTING WITH HER STATED SYMPTOMS. PT STATES THERE IS NOTHING SERIOUS WRONG WITH ME, ATTEMPTS TO SHOW THIS RN THINGS SHE GOOGLED ON CELL. PT STATES SHE WOULD RATHER SIGN OUT AMA AND GO TO PCP THAN STAY AND DO FURTHER TESTING HER AT ED. PT STATES I SHOULD'VE JUST GONE TO MY PCP. PT SIGNED AMA PAPERS, ACKNOWLEDGES LEAVING COULD RESULT IN SERIOUS HEALTH CONSEQUENCES UP TO AND INCLUDING .
== END 2022-10-05 12:04 | disposition left against medical advice (07) ==
PROVIDERS: Emergency Provider Emergency Medicine; PCP Family Medicine; Visit Provider Emergency Medicine
DX: R07.9 Chest pain, unspecified (principal); R10.30 Lower abdominal pain, unspecified; R19.7 Diarrhea, unspecified
CPT/HCPCS: 71046; 93005; 99282; A4216

== ENCOUNTER 2022-10-12 07:28 | Outpatient (RCR) | payer MEDICAID, SELFPAY ==
--- NOTE | 2022-10-12 09:00 | BH.SGPN.GN ---
Behaviors/Verbalizations/Mental Status: []Eye contact fair, casually dressed, motor activity appropriate, speech normal rate and tone, mood anxious and depressed, constricted affect, thoughts linear and intact, no evidence of delusions or hallucinations. Reviewed pt's symptom tracker, reports suicidal ideation within pt baseline and denies active plan or intent as of this date 10/12/22. Client Response/Progress/Benefit: []Pt receptive to session, attentive and listening as others shared throughout. Pt reports feeling ?restless this morning as she is struggling with ongoing anxiety. Expressed not liking to share in the group setting and indicated she would pefer not to process today. Appeared to benefit from group discussion and supportive environment. Recommended continued IOP tx to continue to improve consistency of healthy skill application, maintain mood stability, as well as prevent decompensation. Narrative Note: []
--- NOTE | 2022-10-12 10:15 | BH.SGPN.GN ---
Behaviors/Verbalizations/Mental Status: []Pt alert and oriented, neatly dressed and groomed. Eye contact fair. Motor activity appropriate. Speech within normal limits. Affect constricted, mood anxious and depressed. Thoughts linear, logical, no signs of hallucinations or delusions. Client Response/Progress/Benefit: []Pt responded well to session, contributing to discussion and engaged during the activity. Pt identified the benefits of change which included potential growth and less toxicity. Worked with the group to identify barriers to change and pt identified personal barrier as anxiety in general. Pt participated along with group in activity where they identified and discussed the emotions related to change. Pt participated in discussion on the change process and personal experiences with implementing change in past. Benefited from increased awareness and understanding of emotions, benefits, and barriers related to change. Will continue IOP tx to reduce avoidance and safety behaviors, increase distress tolerance, and improve daily functioning. Narrative Note: []
--- NOTE | 2022-10-12 11:10 | BH.SGPN.GN ---
Behaviors/Verbalizations/Mental Status: []Pt alert and oriented, casually dressed and groomed. Eye contact good. Motor activity appropriate. Speech within normal limits. Affect constricted, mood anxious and depressed. Thoughts linear, logical, no signs of hallucinations or delusions. Client Response/Progress/Benefit: []Pt responded well to session, attentive. Did well to process activity and work with group to relate the strategies used to overcome barriers in the activity to managing change in own life. Pt also stepped out of her comfort zone today by participating instead of declining. Pt identified wanting to work on continuing to communicate needs and triggers with her roommate. Pt stated she had a conversation with her roommate last week and this was helpful, but now pt has to continue having conversations. Pt?s goal today is to address at least one stressor with her roommate today. Pt will continue IOP tx to prevent decompensation, reduce avoidance, and improve distress tolerance skills. Narrative Note: []
--- NOTE | 2022-10-13 11:52 | PCM.BH.PN ---
Progress Note Progress Note: History of Present Illness/Interim History: [] Patient is a 27-year-old single, female with a history of depression, anxiety and PTSD who is seen in follow-up at the [facility] behavioral health IOP program. I last saw the patient little over 1 month ago due to the patient's inconsistent attendance. The patient's is seen by telehealth. The patient states that she feels she is benefiting from the IOP program and is learning valuable skills to help deal with her mental health issues. She feels she is better able to communicate and deal with the other people in her life. However she states that her mood remains depressed and most of her symptoms are relatively unchanged. Her symptoms of depression remain but she denies any symptoms of ifeoma. She denies still any passive thoughts of as she is still really afraid of dying. Her OCD symptoms are also unchanged and are not really bothering her. These include tapping rituals, checking and cleanliness concerns. She denies any purging by vomiting. She states that her job is still her biggest stress because she feels she is treated like crap there. She denies suicidal ideation, self-harm thoughts, homicidal ideation, hallucinations or delusions. She is considering starting a medication with her outpatient psychiatrist that will help with her depression anxiety and her fibromyalgia soon but wants to wait and talk with them about it at her next appointment. Current Psychiatric Medications: [] Klonopin 0.5 mg p.o. as needed up to 3 times a day and she has been on this for 6 years and takes it once or twice a day. Mental Status Examination: [] Patient is a 27-year-old, female who is seen by telehealth and appears normal for stated age and is casually dressed and groomed with good hygiene. She has no psychomotor agitation or retardation. Eye contact is good and speech is normal rate and rhythm and fluent with no pressure. Mood is depressed. Affect is approaching full and less constricted. Thought process is goal-directed and organized. Thought content: There is no evidence of passive thoughts of , suicidal ideation, homicidal ideation, hallucinations or delusions. Reality testing is intact. Intelligence is average. Judgment is intact. Insight is limited but some present. Impulsivity is high.: From most below Diagnoses: [] 1. Bipolar, NOS (F31.9) 2. Panic disorder 3. PTSD 4. OCD 5. Rule out borderline personality disorder 6. Primary support issues 7. Crest syndrome, fibromyalgia, chronic fatigue syndrome Plan: [] The patient will continue the IOP program at [facility] as the structure, support, education and group therapy will hopefully prevent worsening of the patient's symptoms. She felt safe during the interview and if it anytime she does not feel safe she will let us know or go to the emergency room. Long discussion was had with the patient again that I would recommend that she start on another medication and she has agreed to do that soon. She understands still that that I will not prescribe the Klonopin for her and that she should slowly start weaning off the Klonopin after she finds another medication that benefits her that she tolerates. I will see the patient in follow-up while she is in the IOP program and she will continue to follow-up with her outpatient providers.
--- NOTE | 2022-10-14 09:03 | BH.SGPN.GN ---
Behaviors/Verbalizations/Mental Status: []Eye contact fair to good, casually dressed, motor activity appropriate, speech normal rate and tone, mood depressed and agitated, constricted affect, thoughts linear and intact, no evidence of delusions or hallucinations. Reviewed pt's symptom tracker, reports suicidal ideation within pt baseline and denies active plan or intent as of this date 10/14/22. Client Response/Progress/Benefit: []Pt attended session, attentive though resistant to providing input or process with the group. Reported feeling overwhelmed and ?worse? this morning, though declined to go into further detail. Pt discussed that her anxiety often feels trapping; however, with further discussion was able to identify taking a walk outside during break may be helpful. Continues to struggle with distress tolerance and externalization which may impede ability to make continued gains. Recommended continued IOP tx continue to improve mood stability and application of anxiety management skills, as well as prevent decompensation. Narrative Note: []
--- NOTE | 2022-10-14 10:05 | BH.SGPN.GN ---
Behaviors/Verbalizations/Mental Status: []Pt alert and oriented, casually dressed and groomed. Eye contact good. Motor activity appropriate. Speech within normal limits. Affect constricted, mood anxious. Thoughts linear, logical, no signs of hallucinations or delusions. Client Response/Progress/Benefit: []Pt was an active participant in group discussions. Attentive during psychoeducation and participated in interactive discussions in which group defined self-care, discussed the benefits to self-care, and identified common myths surrounding self-care. Pt stated lack of self-care leads to emotional reactivity. Pt and peers broke into smaller group and worked together to bust the myths associated with self-care. Pt?s group worked on myths of self-care is not necessary, not everyone deserves self-care, and it takes too much energy. Benefited from increased awareness of the self-care and its benefits. Pt?s attendance improved this week and pt was more engaged during group sessions today. Pt will continue IOP tx to promote use of healthy coping skills, reduce safety behaviors, and improve daily functioning. Narrative Note: []
--- NOTE | 2022-10-14 11:10 | BH.SGPN.GN ---
Behaviors/Verbalizations/Mental Status: []Pt alert and oriented, casually dressed and groomed. Eye contact fair. Motor activity appropriate. Speech within normal limits. Affect constricted, mood anxious. Thoughts linear, logical, no signs of hallucinations or delusions. Client Response/Progress/Benefit: []Pt engaged participant AEB completing self-assessment worksheet and providing some input throughout discussion. Participated in group discussion on the various areas of self-care. Pt completed worksheet identifying current self-care practices and what self-care activities pt wants to start using. Pt selected psychological self-care to begin practicing more consistently. Pt plans to do this by disconnecting from internet and not reading comments section of certain posts. Appeared to benefit from completing the self-care evaluation and gaining insights into current self-care practices, as well as identifying areas in which she would like to improve upon. Will continue IOP tx to challenge distorted thoughts, improve emotion regulation, and prevent decompensation.
--- NOTE | 2022-10-14 13:31 | BH.MDN ---
Multi-Disciplinary Note - Note 45-min Individual Time Started:: 12:05 Date: 10/14/22 Purpose of session/treatment goals addressed:: To work on goal #2 of pt's treatment plan and discuss aftercare. Eye Contact:: Good Motor Activity:: Appropriate Appearance:: Casual Speech:: Appropriate Mood:: Euthymic Affect:: Congruent Thoughts:: Linear, Logical, No evidence of hallucinations/delusions noted Staff Interventions:: thought challenging, CBT techniques, discharge planning - gave pt resources for EMDR therapists, strengths perspective, goal setting Client Response:: Pt responded well to session, open to meeting with therapist. Pt shared she is doing better than last week, but she is still struggling in some areas. Pt stated the discussion with her roommate went very well and they have been able to communicate more directly. Pt shared she also spent several hours alone yesterday which was a significant progress for pt. Pt reported she has been considering taking medication and is more willing to start something. Discussed the barriers that could prevent pt from trying a medication as well as the potential benefits. Pt brought up her health anxiety and the fear ladder. Discussed different activities and goals pt could put on her fear ladder. Pt shared the top of her fear ladder would be leaving home without my oxygenator. Pt willing to work on distress tolerance skills and was encouraged to practice mindfulness each day as well as sitting with something that makes her uncomfortable. Pt agrees to call and see where she is on the waiting list for outpatient counseling. Risks/Concerns:: Pt denies any active suicidal ideations, plan, or intent as of 10/14/22. Progress Toward Goals/Plan:: Pt reports improved mood and better functioning this week. Pt shared she had a good conversation with her roommate which has helped resolve some of her depressive symptoms. Pt continues to report avoidance, intrusive thoughts and compulsions, worries about her jessica, panic attacks, and negative thinking patterns. Pt shared she has been able to panic attacks better, but her anxiety is still impacting her functioning. Pt receptive to information on EMDR therapy and is encouraged to call the counseling agency pt is on the waiting list for. Pt will continue IOP tx for two more weeks to reinforce healthy coping skills, improve distress tolerance skills, and reduce safety behaviors. Time Stopped:: 11:38
--- NOTE | 2022-10-18 09:00 | BH.SGPN.GN ---
Behaviors/Verbalizations/Mental Status: []Pt alert and oriented, casually dressed and groomed. Eye contact good. Motor activity appropriate. Speech within normal limits. Affect congruent, mood anxious and euthymic. thoughts linear, logical, no signs of hallucinations or delusions. Reviewed pt?s symptom tracker, no risk for suicidal ideation, plan, or intent as of 10/18/22. Pt's scores are within her baseline. Client Response/Progress/Benefit: []Pt responded well to session, attentive and engaged. Pt reports feeling like an imposter because she has been feeling better and this is something pt is not used to. Pt shared she went for a walk and completed one of her individual tx goals discussed in her last session. Pt also has been more open to taking medications and she believes she will begin taking a medication for her depression and anxiety soon. Pt's stressor today is work and fear of not being able to maintain gains which the group normalized. Pt appeared to benefit from reflecting on her growth. Pt will continue IOP tx to promote gains, further increase distress tolerance skills, and reduce avoidance. Narrative Note: []
--- NOTE | 2022-10-19 14:18 | BH.COMM ---
Communication Note - Communication with Client Communication Note: Pt left early from group on 10/18/22 and canceled for her IOP sessions for today. Pt spoke with program assistance, Laverne, and shared her cancelation today was due to an ear infection.
--- NOTE | 2022-10-21 09:05 | BH.SGPN.GN ---
Behaviors/Verbalizations/Mental Status: [] Eye contact is good. Motor activity is appropriate. Appearance is casual. Speech is Appropriate. Mood is euthymic. Affect is full. Thoughts are linear and logical. No evidence of psychosis. Reviewed daily check in sheet and no reports of suicidal ideations or intent. Client Response/Progress/Benefit: [] Pt was an active participant in group today. Attentive. Reports being in good spirits today and her emotions is antsy. Shared I told myself that I would attend IOP last night rather than decided if she attended based on her mood in the AM. Insight that making decisions regarding important tasks based on in the moment mood was negatively impacted her life. She also reported sitting with the uncomfortable last night regarding her intrusive thoughts and OCD compulsions to re-check. More self-aware of her focus on worst-case scenarios and her choice to utilize skills to reframe or not. Benefited from group support, encouragement, and feedback. Will continue in IOP to prevent decompensation, increase healthy coping, and to decrease intrusive thoughts. Narrative Note: []
--- NOTE | 2022-10-21 10:10 | BH.SGPN.GN ---
Behaviors/Verbalizations/Mental Status: []Pt alert and oriented, casually dressed and groomed. Eye contact good. Motor activity appropriate. Speech within normal limits. Affect full, mood euthymic. Thoughts linear, logical, no signs of hallucinations or delusions. Client Response/Progress/Benefit: []Pt responded well to session AEB taking notes throughout, providing input when prompted,and listening attentively to others. Pt was engaged throughout group activity identifying famous individuals and how they overcame failure to be successful. Pt helped group identify how fear of failure can impact mental health and relationships. Pt personally identified that fear of failure can lead to staying stuck and not making changes in life. Pt participated in experiential activity and used group for support as needed. Appeared to benefit from increased knowledge of fear of failure. ?Will continue IOP tx to prevent decompensation, promote healthy coping behaviors, and increase mood stability. ? Narrative Note: []
--- NOTE | 2022-10-21 11:15 | BH.SGPN.GN ---
Behaviors/Verbalizations/Mental Status: []Pt alert and oriented, causally dressed and groomed. Eye contact good. Motor activity appropriate. Speech within normal limits. Affect congruent, mood euthymic. Thoughts linear, logical, no signs of hallucinations or delusions. Client Response/Progress/Benefit: []Pt responded well to session, engaged in the experiential activity and attentive throughout group processing. Pt completed fear of failure worksheet and was able to identify thoughts and behaviors that reinforce personal fear of failure including self-sabotage, all or nothing thinking, and negative self-talk. Pt shared fear of failure has kept pt from taking medications and ?trying to be happy?. Pt participated in small group discussion regarding strategies to overcome fear of failure. Identified implementing mindfulness, giving herself credit, and positive self-talk. Appeared to benefit from increased knowledge of strategies to combat fear of failure and gaining self-awareness. Pt will continue IOP tx to reinforce healthy coping skills, establish aftercare, and improve mood stability. Narrative Note: []
--- NOTE | 2022-10-21 14:29 | BH.MDN_ITS ---
Multi-Disciplinary Note - Note 30-min Individual Time Started:: 12:15 Date: 10/21/22 Purpose of session/treatment goals addressed:: To discuss aftercare plan, review homework from last session, and begin working on pt's maintenance plan. Eye Contact:: Good Motor Activity:: Appropriate Appearance:: Casual Speech:: Appropriate Mood:: Euthymic Affect:: Congruent Thoughts:: Linear, Logical, No evidence of hallucinations/delusions noted Staff Interventions:: thought challenging, CBT techniques, discharge planning, strengths perspective, goal setting Client Response:: Pt responded well to session, open to meeting with therapist. Pt shared she is in a very positive mood today and was singing today during group. Pt is looking forward to going to see a musical this weekend with her roommate. Pt shared concern about this stating, is it bad that my mood is so dependent on plans? Processed this concern using dialectical thinking and pt gained insight on the pros and cons of this. Pt realized that it is helpful to have future plans and have things to look forward to, which makes setting daily and weekly goals and scheduling plans beneficial. However, pt can see how she puts all her eggs in one basket which makes it difficult for pt to manage her emotions if things do not go as planned. Discussed internal and external locus of control and using dialectical thinking to combat all or nothing expectations. Pt shared she wants to get better at this because if one bad thing happens it ruins my entire day. Pt reflected on her progress in IOP and reported she is getting better with using opposite action to not let her emotions drive her behaviors. Pt was given a maintenance plan to begin working on to prepare for discharge next week. The maintenance plan was explained to pt and it will be reviewed next session. Risks/Concerns:: Pt denies any active suicidal ideations, plan, or intent. Pt denies any thoughts of . Progress Toward Goals/Plan:: Pt continues to struggle with consistent attendance, but pt's engagement in group has improved. Pt self-reports today that she is coping much better than she had been a few months ago. Pt shared she has been able to manage panic attacks without going to the hospital and she is having more meaningful conversations with her roommate. Pt feels anxious to leave IOP, but pt also acknowledges her progress. Pt was given a referral for EMDR therapy and pt filled out an online form to be put on a waiting list. Pt also wants to participate in IOP aftercare when pt discharges from IOP. Pt is still on the waiting list for outpatient therapy in [place]. Pt will continue IOP tx for one more week to reinforce healthy coping skills, review pt's maintenance plan, and establish aftercare. Time Stopped:: 12:35
--- NOTE | 2022-10-26 08:03 | BH.AFTERPLAN ---
Aftercare Plan - Demographics Treatment End Date:: 10/26/22 Psychiatrist:: Darling Chappell Psychiatrist Office #:: [phone] [facility]/IOP Therapist:: Nelly Boyer Therapist Phone #:: [phone] - Plan Details Progress/Aftercare Plan Details:: Pt responded well to IOP tx. Pt's attendance improved from her first few weeks. Pt's engagement in group sessions improved and by the end of treatment pt was actively contributing to discussions and communicating with peers. Pt self-reported progress in managing panic attacks on her own, reducing hospital visits, sitting with the uncomfortable, and more directly communicating with her roommate. Pt's DSM-5 scores decreased overall by 9% with anxiety decreasing by 17% and OCD symptoms decreasing by 25%. Strategies for Success:: 1. Opposite action! Continue to challenge yourself to not let anxiety or depression drive your bus. 2. Set small goals each day and break down bigger stressors. 3. Continue to ask for help and advocate for yourself. 4. Challenge distorted thoughts. Remember that something can be overwhelming AND you can cope with it. 5. Keep challenging yourself to reach out to people (both old and new supports). 6. Self-care! this means the fun and not so fun stuff. 7. Keep using your calming skills when anxious. 8. Keep a routine and keep communicating with your roommate. When a negative thought takes over-talk! 9. Give yourself credit! 10. Continue working on your fear ladder! - Appointments Appointments/Referrals to Other Services:: Pt recently saw her outpatient psychiatrist, Dr. Multani, on 10/18/22 and pt will continue to follow up with this provider for medication management. Pt completed a new pt form for EMDR therapy at [facility] in [place], but will not start this for two months. Pt will begin IOP aftercare next week on 11/04/22. Pt is still waiting to be seen at a local agency in [place] for individual counseling. Therapist will give pt new counseling recommendation next week at aftercare if pt has not heard back from this agency. Pt has been waiting since she started IOP. - Medications Home Medications: Home Medications clonazepam 0.5 mg tablet (Klonopin) 0.5 mg PO TID PRN PRN Anxiety 09/01/22
--- NOTE | 2022-10-26 09:55 | BH.MDN ---
Multi-Disciplinary Note - Note 30-min Individual Time Started:: 09:25 Date: 10/26/22 Purpose of session/treatment goals addressed:: To address current stressors and discuss strategies to help cope with these stressors. Another goal was to discuss discharge and aftercare. Eye Contact:: Good Motor Activity:: Appropriate Appearance:: Casual Speech:: Appropriate Mood:: Euthymic Affect:: Congruent Thoughts:: Linear, Logical, No evidence of hallucinations/delusions noted Staff Interventions:: discharge planning, strengths perspective, reviewed DSM-5 Client Response:: Pt responded well to session, open to meeting with therapist. Pt reports feeling anxious and sad that she is leaving, but pt also can see the progress she has made. Pt shared she is much more capable of managing her panic attacks and sitting with the uncomfortable. Pt's health anxiety is still a big stressor, but pt is learning more about her safety behaviors that reinforce the anxious thoughts. Pt reports she is experiencing more saravanan and her relationship with her roommate has improved since pt has begun being more direct and assertive. Pt has been able to hold down her job since starting [facility] in August and pt shared she is functioning better than she was before. Pt shared that her symptoms are still moderate and severe some days, but pt reports increased ability to cope. Pt identified using opposite action, sitting with the uncomfortable, calming skills, and talking with supports as the most helpful coping skills used in [facility]. Risks/Concerns:: Pt denies any suicidal ideations. Progress Toward Goals/Plan:: Pt has accomplished her treatment goals and reports improved ability to manage her symptoms. Pt no longer meets criteria for [facility] level of care and will transition to outpatient counseling and medication management. Pt will be beginning EMDR therapy in two months and pt will start IOP aftercare next week. Pt can continue to work on reducing avoidance, increasing self-confidence, challenging distortions, and utilizing healthy coping skills consistently. Pt will discharge from [facility] tx today. Time Stopped:: 09:50
--- NOTE | 2022-10-26 10:10 | BH.SGPN.GN ---
Behaviors/Verbalizations/Mental Status: [] Eye contact is good. Motor activity is appropriate. Appearance is casual. Speech is Appropriate. Mood is euthymic. Affect is full. Thoughts are linear and logical. No evidence of psychosis. Client Response/Progress/Benefit: [] Pt was an active participant in group discussion. Attentive during psychoeducation. Engaged and participated in experiential activity. Pt along with peers worked together to define pitfalls in relation to mental health. Group was able to identify several common examples of pitfalls which included; negative automatic thoughts, sad songs, isolation, not communicating, self-harm, impulsive spending, over-committing oneself, and self-sabotage. Able to correlate experiential activity and topic of pitfalls. Able to identify strategies to use in activity (as well as in life) to overcome or manage mental health pitfalls. Benefited from increased understanding of types of common pitfalls that impact mental health. Will be discharged from [facility] today. Narrative Note: []
--- NOTE | 2022-10-26 11:10 | BH.SGPN.GN ---
Behaviors/Verbalizations/Mental Status: []Pt alert and oriented, casually dressed and well groomed. Eye contact good. Motor activity appropriate. Speech within normal limits. Affect congruent, mood euthymic. Thoughts linear, logical, no signs of hallucinations or delusions.? Client Response/Progress/Benefit: []Pt receptive of session, engaged throughout AEB pt?contributing to discussion, as well as taking notes.? Pt and group processed how the emotions and perspective of the group impacted the activity positively and negatively at times. Group worked together to identify different coping skills to help manage pitfalls. Pt identified pitfalls they struggle with such as?going ?too fast? and looking for quick fixes, negative thinking, and lack of communication and mind-reading. Pt plans to work on these pitfalls by?thinking in the asher and disabling apps that ?trigger me on purpose.??Benefited from identifying personal pitfalls and strategies to overcome these pitfalls. Will discharge IOP tx today as pt has accomplished her tx goals and no longer meets criteria for IOP level of care.? Narrative Note: []
--- NOTE | 2022-10-26 14:37 | BH.DS ---
Discharge Summary - Demographics Date of Admission:: 08/30/22 Discharge Date: 10/26/22 Presenting Problems at Admission:: Pt is a 27 year-old female with a history of MDD, CARLOS, OCD, and PTSD. Pt was self-referred due to decompensation over the past several months. At admission, pt endorsed increased sleep, erratic appetite, low energy, low motivation, hopelessness, worthlessness, isolative behaviors, increased irritability, and anhedonia. Pt reported that she just wanted to lay in bed all day. Pt shared she had passive SI, but is terrified of dying so pt would not act on these thoughts. Pt also endorsed severe anxiety with daily panic attacks and ruminations. Pt reported it was is hard for her to maintain employment due to her anxiety and panic attacks. Pt's symptoms were impacting her daily and occupational functioning. Discharge Diagnoses:: Bipolar, NOS (F31.9); Panic disorder; PTSD; OCD; Rule out borderline personality disorder Reason for Discharge:: Pt self-reports completing her tx goals and pt's DSM-5 scores have decreased by 9% since admission. Pt reports improved ability to manage her anxiety and panic. Pt no longer meets criteria for [facility] level of care and will transition to outpatient counseling and IOP aftercare. - Treatment Progress During Treatment & Response: Pt responded well to IOP tx. Pt's attendance improved from her first few weeks, but pt consistently missed at least one session a week. Pt's engagement in group sessions improved and by the end of treatment pt was actively contributing to discussions and communicating with peers. Pt self-reported progress in managing panic attacks on her own, reducing hospital visits, sitting with the uncomfortable, and more directly communicating with her roommate. Pt's DSM-5 scores decreased overall by 9% with anxiety decreasing by 17% and OCD symptoms decreasing by 25%. Issues Still to be Addressed:: Avoidance, health anxiety, panic, fear of taking medications, assertively communicating, emotional regulation skills, distress tolerance skills, thought challenging, and processing her trauma through EMDR. Pt can also benefit from continuing to work on her fear ladder and increasing social supports. Discharge Recommendations/Instructions:: Pt recently saw her outpatient psychiatrist, Dr. Multani, on 10/18/22. Pt will follow up again in a month. Pt completed a new pt form for EMDR therapy at [facility] in [place], but will not start this for two months. Pt will begin IOP aftercare next week on 11/04/22. Pt is still waiting to be seen at a local agency in [place] for individual counseling. Therapist will pt new counseling recommendation next week at aftercare if pt has not heard back from this agency. Pt has been waiting since she started IOP. Discharge Handout: Complete Discharge Handout with client on aftercare options and continuity of care.
== END 2022-10-26 12:10 | disposition home or self-care (01) ==
LOC: BHIOP 07:28
PROVIDERS: PCP Family Medicine; Referring Provider Psychiatry & Neurology Psychiatry; Visit Provider Psychiatry & Neurology Psychiatry
DX: F31.9 Bipolar disorder, unspecified (principal); F41.0 Panic disorder [episodic paroxysmal anxiety]; F43.10 Post-traumatic stress disorder, unspecified; F42.9 Obsessive-compulsive disorder, unspecified; M76.20 Iliac crest spur, unspecified hip; M79.7 Fibromyalgia
CPT/HCPCS: 99213; H2012; H2020; S9480; 90832

== ENCOUNTER 2022-11-04 14:00 | Outpatient (RCR) | payer MEDICAID, SELFPAY ==
--- NOTE | 2022-11-04 14:00 | BH.COMM ---
Communication Note - Communication with Client Communication Note: Presented completed IOP and presents today to starting relapse prevention group which meets once weekly (1.5 hours) for 8 weeks. Case discussed with Dr. Sutton with plan to admit with dx of F31.9
--- NOTE | 2022-11-04 14:00 | BH.SGPN.GN ---
Behaviors/Verbalizations/Mental Status: []Pt alert and oriented, casually dressed and groomed. Eye contact good. Motor activity appropriate. Speech within normal limits. Affect congruent, mood euthymic. Thoughts linear, logical, no signs of hallucinations or delusions. Client Response/Progress/Benefit: []Pt receptive of session, engaged throughout. Pt shared she has an appointment to start EMDR in November. Pt has not seen her psychiatrist, but pt has started Lexapro which is significant progress for pt. Pt reports she has been using sitting with the uncomfortable, exposure goals, and mindfulness skills to cope with daily stressors. Receptive of discussion on sitting with the uncomfortable and emotional urges. Pt contributed to the discussion of distress tolerance and how building distress tolerance can help improve mood stability and resilience. Pt selected embarrassing herself on purpose to build distress tolerance. Pt will practice mindfulness skills and breathing ?to cope with the anxiety in the moment and build confidence. Pt seemed to benefit from support from peers and increasing understanding of distress tolerance. Will continue IOP aftercare group to maintain gains and reinforce healthy coping skills.? Narrative Note: []
--- NOTE | 2022-11-04 16:01 | BH.MTP ---
Master Treatment Plan - Patient Information Program Physician:: Dr. Darling Chappell Primary Therapist:: Nelly SEGURA - Psychiatric Diagnoses Psychiatric Diagnoses:: Bipolar, NOS (F31.9); Panic disorder; PTSD; OCD; Rule out borderline personality disorder Diagnosis Code(s):: F 31.9 - Estimated LOS Estimated LOS (in weeks):: 8 Problem/Goal #1 - Problem/Goal #1 Stated Goal:: client will maintain or see a reduction in symptoms AEB client score on the DSM 5 cross-cutting measure and improve client's daily functioning. - Objectives Objective #1 Stated Objective: Client will continue to consistently apply healthy coping skills to maintain progress made in IOP tx. Interventions: Through group therapy, client will review warning signs and triggers as well as healthy coping skills learned in IOP tx to successfully maintain gains while transitioning into outpatient therapy. Discharge Criteria: Client will have accomplished this goal when client's score on the DSM-5 cross-cutting measure has maintained or reduced over a 8 week period. Target Date: 12/30/22 Review Date: 12/02/22 Status: open Objective #2 Stated Objective: Client will learn and utilize 2-3 maintenance strategies to prevent decompensation from original IOP DSM-5 scores. Interventions: Through group therapy, client will be provided with education on healthy maintenance behaviors, relapse prevention techniques, and healthy coping strategies. Discharge Criteria: Client will have accomplished this goal when can report using at least 2 maintenance skills to prevent decompensation compared to original IOP DSM-5 scores Target Date: 12/30/22 Review Date: 12/02/22 Status: open
== END 2022-11-09 23:59 ==
LOC: BHOG 14:00
PROVIDERS: PCP Family Medicine; Referring Provider Psychiatry & Neurology Psychiatry; Visit Provider Psychiatry & Neurology Psychiatry
DX: F31.9 Bipolar disorder, unspecified (principal); F43.10 Post-traumatic stress disorder, unspecified; F60.5 Obsessive-compulsive personality disorder
CPT/HCPCS: 90853

== ENCOUNTER 2022-11-10 07:28 | Outpatient (RCR) | payer MEDICAID, SELFPAY ==
--- NOTE | 2022-11-18 14:00 | BH.SGPN.GN ---
Behaviors/Verbalizations/Mental Status: []Client alert and oriented, casually dressed. Eye contact good. Motor activity appropriate. Speech within normal limits. Affect congruent, mood euthymic. Thoughts linear, logical, no signs of hallucinations or delusions. Client Response/Progress/Benefit: []Client receptive of session, engaged and providing supportive feedback throughout group. Reports feeling ?foggy? today and shared this is related to trying to adjust to the recent changes in her medication. Reports she is planning on meeting with an outpatient therapist soon but has not yet scheduled this, reports she sees her psychiatrist regularly, and is taking her medication as prescribed. Identified skills she has been using as sitting with the uncomfortable, setting boundaries with herself, and going for more consistent walks. Client engaged in the discussion about self-love and worked with the group to identify strategies for increasing self-love. Reports wanting to work on self-love by reminding herself to ?give credit to accomplishments each day?. Seemed to benefit from reviewing treatment progress and strategies for managing current stressors, as well as learning about how to increase self-love. Client will continue in aftercare for ongoing maintenance and further skill development. Narrative Note: []
--- NOTE | 2022-12-02 15:51 | BH.MTP_ITS ---
Treatment Plan Review Date of Admission:: 11/04/22 Date of Treatment Plan Review:: 12/02/22 Admitting Diagnoses:: Bipolar, NOS (F31.9); Panic disorder; PTSD; OCD; Rule out borderline personality disorder Current Diagnoses:: Bipolar, NOS (F31.9); Panic disorder; PTSD; OCD; Rule out borderline personality disorder Patient's Response to Treatment:: Pt continues to respond well to treatment AEB pt's consistent attendance, ongoing attentiveness and engagement in group discussions, and continued reporting use of skills outside treatment environment. Pt had a recent setback, but pt is reporting more resilience than she has had in the past. Status of Current Problems and Symptoms: Ongoing issues with work and finances, lack of support, report of severe anxiety and depression per the DSM-5, and recent health anxiety regression. Problem #1 Problem Name:: Pt will maintain or see a reduction in sx Status of Goals:: Obj 1 not complete- DSM 5 scores for depression and anxiety are back to pt's admission scores which is likely due to pt's recent health issues that triggered health anxiety. Pt also has not met with an outpatient therapist which is likely contributing to decompensation. Obj 2 - partially complete with ongoing work encouraged. Pt reports using some grounding skills, boundary setting, and sitting with the uncomfortable, but pt's symptoms are still severe. Team Recommendations:: Recommended client continue IOP aftercare group in addition to attending regular outpatient counseling in order to maintain gains. Pt is also encouraged to call Yaritza carrasco [facility] to see where pt is at on the EMDR waitlist.
== END 2022-12-07 23:59 ==
LOC: BHOG 07:28
PROVIDERS: PCP Family Medicine; Referring Provider Psychiatry & Neurology Psychiatry; Visit Provider Psychiatry & Neurology Psychiatry
DX: F31.9 Bipolar disorder, unspecified (principal); F43.10 Post-traumatic stress disorder, unspecified
CPT/HCPCS: 90853

== ENCOUNTER 2022-12-08 06:34 | Outpatient (RCR) | payer MEDICAID, SELFPAY ==
--- NOTE | 2022-12-09 14:00 | BH.SGPN.GN ---
Behaviors/Verbalizations/Mental Status: []Pt alert and oriented, casually dressed and groomed. Eye contact fair. Motor activity appropriate. Speech within normal limits. Affect constricted, mood irritable. Thoughts linear, logical, no signs of hallucinations or delusions. Client Response/Progress/Benefit: []Pt responded well to session AEB sharing and listening attentively to others. Pt reports she has not followed up with her therapist or psychiatrist as pt still has not got an appointment with new providers. Pt is taking her medications consistently, but pt recently had a health issue which triggered her irritability towards not being prescribed certain medications. Pt and a few other peers admitted that they have not been completing homework for aftercare or utilizing healthy coping skills consistently. This prompted a long discussion on accountability and therapist used motivational interviewing. Pt then became more engaged participated in group discussion defining affirmations and why they are important. Pt provided insight throughout clinician?s presentation of tips for writing personal affirmations. Pt wrote own affirmations, including ??I am sunshine.? Pt appeared to benefit from increased knowledge of affirmation writing and increased self-awareness. Will continue aftercare treatment to reinforce healthy coping skills and promote gains. Narrative Note: []
--- NOTE | 2022-12-23 14:00 | BH.SGPN.GN ---
Behaviors/Verbalizations/Mental Status: []Client alert and oriented, casual in appearance. Eye contact good. Motor activity appropriate. Speech within normal limits. Affect congruent. Mood euthymic. Thoughts linear, logical, no signs of hallucinations or delusions Client Response/Progress/Benefit: []Pt responded well to session AEB providing input throughout and listening attentively to others. Pt reported she is still waiting to here back to schedule an outpatient provider intake assessment and has a psychiatry appointment for next month. Reports taking medications as prescribed. Pt identified several coping skills she has been using over the past week to continue to manage mental health sx, which included: trying to find small positives each day, thought challenging/reframing, and positive affirmations. Pt connected with self-reflection discussion. Worked with group to identify the benefits of self-reflection. Appeared to benefit from identifying how to incorporate self-reflection into daily life. Pt completed aftercare specific self-reflection activity and indicated she has seen improvements in her ability to consistently utilize positive self-talk when identifying negative thoughts, as well as improved communication but would like to continue to focus on making improvements in managing self-harming urges. Willing to complete weekly self-reflection assignment for homework. Pt to continue aftercare to maintain gains and prevent decompensation. Narrative Note: []
--- NOTE | 2022-12-30 14:00 | BH.SGPN.GN ---
Behaviors/Verbalizations/Mental Status: []Pt alert and oriented, neatly dressed and groomed. Eye contact good. Motor activity appropriate. Speech within normal limits. Affect congruent, mood euthymic. Thoughts linear, logical, no signs of hallucinations or delusions. Client Response/Progress/Benefit: []Pt responded well to session, pt reports she has still not got into outpatient counseling, but she was receptive to a new referral. Pt has been taking her medications and reports benefit from them. Pt reports ?a lot of coping skills? to help manage recent anxiety triggers. Pt also started a new job and really enjoys it per her report. Pt engaged well during the discussion of the components of self-compassion. Pt connected with the benefits of self-compassion and participated in the activity of reframing a recent setback using self-compassion. Pt used self-compassion to combat negative self-talk and assisted peers in identifying examples of the three components of self-compassion.?Pt appeared to benefit from practicing self-compassion and connecting with peers. Will continue aftercare to promote mood stability and reinforce healthy coping skills.? Narrative Note: []
--- NOTE | 2023-01-06 14:00 | BH.SGPN.GN ---
Addendum entered and electronically signed by Nelly Boyer 02/08/23 14:50: error in the last sentence of client response. Pt will discharge from IOP aftercare today as pt has accomplished her tx goals and will follow up with outpatient counseling. Original Note: Behaviors/Verbalizations/Mental Status: []Pt alert and oriented, neatly dressed and groomed. Eye contact good. Motor activity appropriate. Speech within normal limits. Affect congruent, mood euthymic. Thoughts linear, logical, no signs of hallucinations or delusions. Client Response/Progress/Benefit: []Pt responded well to session, attentive and engaged. Pt reports she got an appointment with an EMDR therapist, taking her medications, and she completed the homework from last session. Pt reports using calming skills, thought challenging, and self-compassion. Pt participated in discussion of personal values and why knowing these can be helpful to one's mental health. The group also discussed what could happen if one does not live according to their values. Pt identified her top two values as friendship/social and hobbies and recreational. Pt set a goal to take more time to appreciate the small things. Pt will continue IOP aftercare to promote mood stability and gains made in IOP. Narrative Note: []
--- NOTE | 2023-01-06 16:52 | BH.DS ---
Discharge Summary - Demographics Date of Admission:: 11/04/22 Discharge Date: 01/06/23 Presenting Problems at Admission:: Pt discharged from IOP tx and transitioned to IOP aftercare to maintain gains pt made in IOP and to reinforce healthy coping skills. At admission to IOP aftercare, pt continued to report symptoms of depression, anxiety, and mood instability but of reduced intensity and frequency. Pt also was experiencing work stress, negative thinking, health fears, unprocessed trauma, and primary support issues. Discharge Diagnoses:: Bipolar, NOS (F31.9); Panic disorder; PTSD; OCD; Rule out borderline personality disorder Reason for Discharge:: Pt has accomplished tx goals AEB ability to maintain mood stability and gains made in IOP. Pt's DSM-5 scores decreased by an additional 31% from IOP admission. Pt will transition to traditional outpatient counseling. - Treatment Progress During Treatment & Response: Pt responded well and made progress in IOP aftercare as evidenced by pt's participation in group discussions and self-report of consistently applying coping skills. Pt's overall DSM-5 scores decreased by 31% from IOP admission. Pt?s depression decreased by 38% since original IOP admission, anger by 50%, and pt's scores for anxiety decreased by 25% compared to original IOP scores. Additionally, at discharge Pt was reporting consistently taking her medications, using healthy coping skills, and communicating with her roommate. Pt also reported increased ability to manage intrusive thoughts and triggers. Issues Still to be Addressed:: Pt can continue to work on exposure therapy goals to reduce anxiety/health anxiety and avoidance. Pt can also benefit from EMDR therapy and pt is now connected with Amanda Aviles at [facility] to begin this treatment. Lastly, pt can continue to work on increasing her self-worth, combating distortions, and increasing confidence. Discharge Recommendations/Instructions:: Pt has an intake appointment in the next week at [facility] with Amanda Aviles for EMDR therapy. Pt will also continue seeing her psychiatrist at [facility]. Discharge Handout: Complete Discharge Handout with client on aftercare options and continuity of care.
== END 2023-01-06 15:33 | disposition home or self-care (01) ==
LOC: BHOG 06:34
PROVIDERS: PCP Family Medicine; Referring Provider Psychiatry & Neurology Psychiatry; Visit Provider Psychiatry & Neurology Psychiatry
DX: F31.9 Bipolar disorder, unspecified (principal); F41.0 Panic disorder [episodic paroxysmal anxiety]; F43.10 Post-traumatic stress disorder, unspecified; F42.9 Obsessive-compulsive disorder, unspecified
CPT/HCPCS: 90853